=== PATIENT | male | born 1980 | race Caucasian/White ===

== ENCOUNTER 2017-05-28 07:23 | Emergency (ER) | payer MEDICAID ==
[~2017-05-28] VITALS: Ht 170.2 cm; Wt 65.0 kg
[2017-05-28] MEDS ORDERED: SOD CHLORIDE 0.9% 1,000 ML IV STA (07:28)
[2017-05-28] MEDS ORDERED: ONDANSETRON 4 MG INJ IV ONE (07:30)
[2017-05-28] MEDS ORDERED: morphine 2 MG INJ IV ONE (07:30)
[2017-05-28 07:40] VITALS: Ht 170.2 cm; Wt 65.0 kg
[2017-05-28 08:36] LABS: BASOPHILS % 0.6 % (0.0-2.0); EOSINOPHILS # 0.2 10^3/ul (0.0-0.5); EOSINOPHILS % 2.9 % (0.0-7.0); HEMATOCRIT 39.7 % (42.0-52.0); HEMOGLOBIN 13.5 g/dl (14.0-18.0); LYMPHOCYTES # 1.9 10^3/ul (0.8-2.9); LYMPHOCYTES % 31.5 % (15.0-51.0); MEAN CORPUSCULAR HEMOGLOBIN 31.3 pg (29.0-33.0); MEAN CORPUSCULAR VOLUME 91.9 fl (82.0-101.0); MONOCYTE # 0.5 10^3/ul (0.3-0.9); MONOCYTES % 7.3 % (0.0-11.0); NEUTROPHIL # 3.5 10^3/ul (1.6-7.5); NEUTROPHILS % 57.1 % (39.0-77.0); PLATELET COUNT 193 10^3/UL (140-415); RED BLOOD COUNT 4.32 10^6/ul (4.70-6.10); RED CELL DISTRIBUTION WIDTH 12.6 % (11.5-14.5); WHITE BLOOD COUNT 6.2 10^3/ul (4.8-10.8)
[2017-05-28] MEDS ORDERED: SOD CHLORIDE 0.9% 100 ML ONE (08:43)
[2017-05-28] MEDS ORDERED: IOHEXOL 300MG/ML 150 ML BTL ONE (08:43)
[2017-05-28 09:01] LABS: ALBUMIN 3.5 g/dl (3.3-4.9); BILIRUBIN,INDIRECT 0.1 mg/dl (0-1.1); BILIRUBIN,TOTAL 0.1 mg/dl (0.2-1.3); CALCIUM 8.8 mg/dl (8.4-10.2); CREATININE 0.84 mg/dl (0.61-1.24); POTASSIUM 3.9 mmol/L (3.5-5.1); TOTAL PROTEIN 6.3 g/dl (6.1-8.1)
[2017-05-28 09:02] LABS: INR 0.95; PROTIME 12.7 Sec (12.2-14.2)
[2017-05-28 09:03] LABS: PARTIAL THROMBOPLASTIN TIME 28.9 Sec (25.0-35.0)
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
[2017-05-28] MEDS ORDERED: HYDROmorphONE 1 MG/ML SYG IV STA (09:54)
--- NOTE | 2017-05-28 09:58 | RADRPT ---
PROCEDURE: CT Chest, Abdomen and Pelvis with contrast. CLINICAL INDICATION: Annual Exam TECHNIQUE: CT scan of the chest, abdomen, and pelvis with contrast was performed on a multi-detect or high-resolution CT scanner. The patient was scanned following the uncomplicated intravenous admi nistration of 100 cc of Omnipaque 300 intravenous contrast. Coronal and sagittal reformatted images were obtained from the axial source images. Images were reviewed on a high-resolution PACS workstat ion. One or the following dose reduction techniques were used: -Automated exposure control. -Adjustment of the mA and/or KV according to patient's size. -Use of iterative reconstruction technique. DICOM images are available. COMPARISON: None available FINDINGS: CT chest: Lungs are well expanded and clear. There is a calcified granuloma in the right middle lobe. No evide nce of contusion or pneumothorax. The mediastinum is unremarkable without evidence for mass or lymphadenopathy. The vascular structur es of the mediastinum are normal in course and caliber. Aortic vascular calcifications and coronary artery calcifications are present. The heart size is normal without evidence for pericardial thicke bhupendra or effusion. The axillary regions, subpectoral regions, and supraclavicular regions are all unr emarkable. The surrounding chest wall is unremarkable. CT abdomen: The liver is normal in size and density without focal mass or intrahepatic biliary dilatation. The spleen is normal in size and homogeneous in density. The stomach is partially collapsed, but is barbara ssly unremarkable. The pancreas as visualized is normal. The gallbladder and biliary tree are unre markable and there is no evidence for biliary dilatation. The adrenal glands are symmetric and norm al. The kidneys are symmetrically unremarkable as well. No renal calculus or obstructive uropathy or mass lesion is seen. No free intra-abdominal or pelvic air is seen. The aorta is of normal caliber. The great vessels appear normal in caliber.. There is no retroperi toneal lymphadenopathy. The josephine hepatis region is clear. The bowel and mesentery, as visualized, are equally unremarkable. CT pelvis: The small bowel loops situated within the pelvis are unremarkable. The pelvic organs are normal. T he pelvic sidewalls and inguinal regions are clear. The sigmoid colon and rectum are all unremarkab le. No mass, lymphadenopathy, or free fluid is seen. No acute inflammation is seen. The surrounding osseous structures are unremarkable without evidence of acute fracture. No osteolyt ic or osteoblastic lesion is detected. IMPRESSION: 1. Unremarkable CT of the chest abdomen pelvis. RPTAT: AACC Vamsi Danielle Physician Date Time Electronically viewed and signed by Vamsi Danielle Physician on 05/28/2017 09:57 /
[2017-05-28 10:27] VITALS: BP 128/78; PULSE 70; RESP 14
[2017-05-28] MEDS ORDERED: IBUP-1542 PO (10:49)
[2017-05-28] MEDS ORDERED: HYDR-902 PO (10:49)
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
== END 2017-05-28 11:10 | disposition home or self-care (01) ==
LOC: E/R 07:23
DX: D64.9 Anemia, unspecified (principal); S19.9XXA Unspecified injury of neck, initial encounter; S29.9XXA Unspecified injury of thorax, initial encounter; S39.91XA Unspecified injury of abdomen, initial encounter; R93.0 Abnormal findings on diagnostic imaging of skull and head, not elsewhere classified; R07.9 Chest pain, unspecified; V23.9XXA Unspecified motorcycle rider injured in collision with car, pick-up truck or van in traffic accident, initial encounter
CPT/HCPCS: 70450; 71260; 72125; 74177; 80048; 80076; 85025; 85610; 85730; 96374; 96375; J1170; J2270; J2405; J7030; Q9967; Z7502; Z7610

== ENCOUNTER 2017-05-31 09:36 | Emergency (ER) | payer SELFPAY ==
[~2017-05-31] VITALS: Ht 175.3 cm; Wt 82.1 kg
[~2017-05-31 09:36] MED LIST: HYDR-902 PO; IBUP-1542 PO
[2017-05-31 09:40] VITALS: Ht 175.3 cm; Wt 82.1 kg
== END 2017-05-31 11:41 | disposition left against medical advice (07) ==
LOC: FTE 09:36
DX: Z53.21 Procedure and treatment not carried out due to patient leaving prior to being seen by health care provider (principal)

== ENCOUNTER 2017-06-04 19:40 | Emergency (ER) | payer MEDICAID ==
[~2017-06-04] VITALS: Ht 177.8 cm; Wt 83.2 kg
[2017-06-04 19:51] VITALS: Ht 177.8 cm; Wt 83.2 kg
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
[2017-06-04] MEDS ORDERED: IBUP800T25 PO (21:35)
[2017-06-04] MEDS ORDERED: CEPH-443 PO (21:35)
[2017-06-04] MEDS ORDERED: HYDR-902 PO (21:35)
[2017-06-04 22:39] VITALS: BP 136/97; PULSE 70; RESP 18; TEMP 98.1
== END 2017-06-04 22:40 | disposition home or self-care (01) ==
LOC: FTE 19:40
DX: L08.89 Other specified local infections of the skin and subcutaneous tissue (principal)
CPT/HCPCS: 99283